=== PATIENT | male | born 1985 | race Caucasian/White ===

== ENCOUNTER 2017-01-26 11:46 | Emergency (ER) | payer OTHER ==
[~2017-01-26] VITALS: Ht 177.8 cm; Wt 93.6 kg
[~2017-01-26 11:46] MED LIST: AMLODIPINE BES2.5 MG PO; LISINOPRIL20 MG PO; NOHOMEMEDS; ULTRAM50 MG PO
[2017-01-26] MEDS ORDERED: PERCOCET 5/31 TABLET PO (16:06)
[2017-01-26 16:21] VITALS: BP 118/77
== END 2017-01-26 16:25 | disposition home or self-care (01) ==
LOC: EME 11:46
DX: S20.229A Contusion of unspecified back wall of thorax, initial encounter (principal); V59.40XA Driver of pick-up truck or van injured in collision with unspecified motor vehicles in traffic accident, initial encounter; I10 Essential (primary) hypertension
CPT/HCPCS: 70450; 72040; 72070; 72100; 99281; 99284

== ENCOUNTER 2017-08-12 20:35 | Emergency (ER) | payer BC ==
[~2017-08-12] VITALS: Ht 180.3 cm; Wt 95.7 kg
[~2017-08-12 20:35] MED LIST changes: +PERCOCET 5/31 TABLET PO
[2017-08-12 21:45] LABS: HEMATOCRIT 43.5 % (38.0-50.0); HEMOGLOBIN 15.6 G/DL (12.5-16.6); MCHC 35.9 G/DL (30.0-36.0); MCV 83.7 FL (86-99); PLATELET COUNT 156 K/uL (156-360); RBC DIS.WIDTH-CV 11.9 % (11.8-14.6); RBC DIS.WIDTH-SD 35.7 % (39-53); WHITE BLOOD COUNT 5.8 K/uL (4.1-10.2)
[2017-08-12 21:59] LABS: APPEARANCE CLEAR ((CLEAR)); BILIRUBIN NEGATIVE; BLOOD NEGATIVE; COLOR STRAW ((YELLOW)); GLUCOSE (STRIP) NEGATIVE; KETONES NEGATIVE; LEUKOCYTES NEGATIVE; NITRITE NEGATIVE; PROTEIN (STRIP) NEGATIVE; SPECIFIC GRAVITY 1.005 (1.000-1.030); UCUL ADDED? NO; UROBILINOGEN 0.2 MG/DL (0.2-1.0)
[2017-08-12 22:03] LABS: ALBUMIN 4.3 g/dL (3.2-4.8); CHLORIDE 105 mEq/L (99-109); SODIUM 138 mEq/L (136-147)
[2017-08-12 22:06] LABS: GLUCOSE 100 mg/dL (70-99)
[2017-08-12 22:07] LABS: TOTAL BILIRUBIN 0.5 mg/dL (0.0-1.0)
[2017-08-12 22:09] LABS: ALKALINE PHOSPHATASE 70 IU/L (3-129); GFR ESTIMATE (CALCULATED) > 59 mL/min/ (58.99-99999)
[2017-08-12 22:10] LABS: UREA NITROGEN (BUN) 12 mg/dL (9-23)
[2017-08-12 22:11] LABS: AST (GOT) 24 IU/L (2-34)
[2017-08-12 22:12] LABS: ALT (GPT) 22 IU/L (3-49)
[2017-08-12 22:13] LABS: LIPASE 45 U/L (1.0-51.0)
[2017-08-12] MEDS ORDERED: ZOFRAN ODT4 MG PO (23:33)
[2017-08-12] MEDS ORDERED: FLOMAX0.4 MG PO (23:33)
[2017-08-12] MEDS ORDERED: PERCOCET 5/31 TABLET PO (23:33)
[2017-08-12 23:55] VITALS: BP 151/94
[2017-08-17 14:37] LABS: STOOL OCCULT BLD 1ST SPECIMEN POSITIVE
== END 2017-08-12 23:56 | disposition home or self-care (01) ==
LOC: EME 20:35 → EXP 20:35
DX: N20.0 Calculus of kidney (principal); N50.812 Left testicular pain; I10 Essential (primary) hypertension; N43.3 Hydrocele, unspecified; F32.9 Major depressive disorder, single episode, unspecified; Z98.52 Vasectomy status
CPT/HCPCS: 74177; 76870; 80053; 81003; 82272; 83690; 85027; 99281; 99285; J1885; J2405; J7030

== ENCOUNTER 2017-11-23 07:14 | Emergency (ER) | payer OTHER, BC ==
[~2017-11-23] VITALS: Ht 180.3 cm; Wt 91.7 kg
[~2017-11-23 07:14] MED LIST changes: +FLOMAX0.4 MG PO; +ZOFRAN ODT4 MG PO
[2017-11-23 10:18] VITALS: BP 143/85
== END 2017-11-23 10:19 | disposition home or self-care (01) ==
LOC: EME 07:14
DX: S30.0XXA Contusion of lower back and pelvis, initial encounter (principal); V49.40XA Driver injured in collision with unspecified motor vehicles in traffic accident, initial encounter; Y92.410 Unspecified street and highway as the place of occurrence of the external cause; I10 Essential (primary) hypertension; Z98.890 Other specified postprocedural states; Z86.79 Personal history of other diseases of the circulatory system
CPT/HCPCS: 71046; 72100; 99281; 99283

== ENCOUNTER 2017-12-18 11:35 | Emergency (ER) | payer OTHER, BC ==
[~2017-12-18] VITALS: Ht 177.8 cm; Wt 96.0 kg
[2017-12-18] MEDS ORDERED: FLEXERIL10 MG PO (14:03)
[2017-12-18] MEDS ORDERED: MOTRIN800 MG PO (14:03)
[2017-12-18 14:20] VITALS: BP 139/85
== END 2017-12-18 14:21 | disposition home or self-care (01) ==
LOC: EME 11:35
DX: S30.0XXA Contusion of lower back and pelvis, initial encounter (principal); V49.40XA Driver injured in collision with unspecified motor vehicles in traffic accident, initial encounter; Y92.410 Unspecified street and highway as the place of occurrence of the external cause; I10 Essential (primary) hypertension; F90.9 Attention-deficit hyperactivity disorder, unspecified type; F32.9 Major depressive disorder, single episode, unspecified
CPT/HCPCS: 70450; 71045; 72040; 72070; 72100; 73564; 99281; 99283